=== PATIENT | female | born 1995 | race Caucasian/White ===

== ENCOUNTER 2021-03-08 12:47 | Emergency (ER) | payer OTHER ==
[~2021-03-08] VITALS: Ht 160 cm; Wt 49.9 kg
[2021-03-08 13:41] VITALS: BP 103/53
[2021-03-08] MEDS ORDERED: AMOX-430 PO (14:04)
[2021-03-08] MEDS ORDERED: OXYC-128 PO (14:11)
== END 2021-03-08 14:15 | disposition home or self-care (01) ==
LOC: ER 12:55
DX: H66.41 Suppurative otitis media, unspecified, right ear (principal)

== ENCOUNTER 2021-04-04 16:25 | Emergency (ER) | payer BC, MEDICAID ==
[~2021-04-04] VITALS: Ht 165.1 cm; Wt 54.4 kg
[~2021-04-04 16:25] MED LIST: AMOX-430 PO; OXYC-128 PO
--- NOTE | 2021-04-04 17:00 | NUR ---
The patient bibs for c/o right rar pain. Rates pain 10/10. Denies change in hearing. Will continue to monitor the patient.
[2021-04-04] MEDS ORDERED: AMOX-430 PO (17:05)
[2021-04-04] MEDS ORDERED: OXYC-128 PO (17:05)
[2021-04-04] MEDS ORDERED: CIPR7.5D RIGHT EAR (17:05)
[2021-04-04 17:25] VITALS: BP 117/72
--- NOTE | 2021-04-04 17:25 | NUR ---
Patient discharged to home in stable condition. Written and verbal after care instructions given. Patient verbalizes understanding of instruction.
== END 2021-04-04 17:26 | disposition home or self-care (01) ==
LOC: ER 16:29
DX: H60.91 Unspecified otitis externa, right ear (principal); Z79.899 Other long term (current) drug therapy

== ENCOUNTER 2023-03-10 17:49 | Emergency (ER) | payer MEDICAID ==
[~2023-03-10] VITALS: Ht 157.5 cm; Wt 46.7 kg
[~2023-03-10 17:49] MED LIST changes: +CIPR7.5D9 RIGHT EAR
[2023-03-10 18:04] VITALS: BP 99/73
--- NOTE | 2023-03-10 18:15 | NUR ---
c/o left ankle pain s/p tripped and fall 2 DFAYS AGO FROM A STAIR. NO LOC, DENIES HEAD TRAUMA. 07/06 ps
[2023-03-10] MEDS ORDERED: IBUPROFEN 600 MG TABLET PO ONE (18:30)
[2023-03-10] MEDS ORDERED: HYDROCODONE/APAP 5/325MG TABLET PO ONE (18:30)
--- NOTE | 2023-03-10 18:31 | NUR ---
FURNITURE ASSOCIATE AT BEDSIDE FOR XRAY
[2023-03-10] MEDS ORDERED: HYDROCODONE/APAP 5/325MG TABLET ONE (18:33)
[2023-03-10] MEDS ORDERED: IBUPROFEN 600 MG TABLET ONE (18:33)
--- NOTE | 2023-03-10 18:39 | NUR ---
GAVE ORAL MEDS NORCO AND MOTRIN TABS
[2023-03-10] MEDS ORDERED: HYDR-4209 PO (19:22)
[2023-03-10] MEDS ORDERED: IBUP-1955 PO (19:23)
--- NOTE | 2023-03-10 19:28 | NUR ---
Patient discharged to home in stable condition with crutches. RX Written and verbal after care instructions given. Patient verbalizes understanding of instruction.
--- NOTE | 2023-03-10 19:28 | NUR ---
SPLINT APPLIED TO L FOOT
== END 2023-03-10 20:39 | disposition home or self-care (01) ==
LOC: ER 17:59
DX: S92.352A Displaced fracture of fifth metatarsal bone, left foot, initial encounter for closed fracture (principal); W01.0XXA Fall on same level from slipping, tripping and stumbling without subsequent striking against object, initial encounter; Y93.89 Activity, other specified; Y92.89 Other specified places as the place of occurrence of the external cause; Y99.8 Other external cause status
CPT/HCPCS: 73610-TC; 73630-TC

== ENCOUNTER 2023-10-07 10:04 | Emergency (ER) | payer SELFPAY ==
[~2023-10-07] VITALS: Ht 157.5 cm; Wt 46.3 kg
[~2023-10-07 10:04] MED LIST changes: +HYDR-4209 PO; +IBUP-1955 PO
[2023-10-07 11:24] VITALS: BP 137/91; TEMP 98.2; O2SAT 98
[2023-10-07] MEDS ORDERED: ACETAMINOPHEN 325 MG TABLET ONE (12:21)
[2023-10-07] MEDS: ACETAMINOPHEN 325 MG TABLET PO ONE (12:23)
[2023-10-07] MEDS ORDERED: HYDR-4303 PO (13:28)
[2023-10-07] MEDS ORDERED: IBUP-1957 PO (13:28)
== END 2023-10-07 13:46 | disposition home or self-care (01) ==
LOC: ER 10:04
DX: S82.62XA Displaced fracture of lateral malleolus of left fibula, initial encounter for closed fracture (principal); S92.355A Nondisplaced fracture of fifth metatarsal bone, left foot, initial encounter for closed fracture; X50.1XXA Overexertion from prolonged static or awkward postures, initial encounter; Y93.89 Activity, other specified; Y92.89 Other specified places as the place of occurrence of the external cause; Y99.8 Other external cause status
CPT/HCPCS: 73610-TC; 73630-TC

== ENCOUNTER 2023-12-10 09:44 | Emergency (ER) | payer SELFPAY ==
[~2023-12-10] VITALS: Ht 157.5 cm; Wt 47.6 kg
[~2023-12-10 09:44] MED LIST changes: +HYDR-4303 PO; +IBUP-1957 PO
[2023-12-10] MEDS ORDERED: ACETAMINOPHEN ES 500 MG TABLET ONE (10:16)
[2023-12-10] MEDS: CYCLOBENZAPRINE 10 MG TABLET PO ONE (10:16)
[2023-12-10] MEDS ORDERED: CYCLOBENZAPRINE 10 MG TABLET ONE (10:16)
[2023-12-10] MEDS: ACETAMINOPHEN ES 500 MG TABLET PO ONE (10:21)
[2023-12-10] MEDS ORDERED: CYCL10TA9 PO (11:03)
[2023-12-10] MEDS ORDERED: IBUP-1957 PO (11:03)
[2023-12-10 12:27] VITALS: BP 112/54; TEMP 98.3; O2SAT 96
== END 2023-12-10 12:29 | disposition home or self-care (01) ==
LOC: ER 09:44
DX: S13.4XXA Sprain of ligaments of cervical spine, initial encounter (principal); M50.322 Other cervical disc degeneration at C5-C6 level; V89.2XXA Person injured in unspecified motor-vehicle accident, traffic, initial encounter; Y93.89 Activity, other specified; Y92.89 Other specified places as the place of occurrence of the external cause; Y99.8 Other external cause status
CPT/HCPCS: 72125-TC